=== PATIENT | female | born 1975 | race Caucasian/White ===

== ENCOUNTER 2018-09-29 16:32 | Emergency (ER) | payer OTHER ==
[~2018-09-29] VITALS: Ht 162.6 cm; Wt 81.6 kg
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
[2018-09-29] MEDS ORDERED: NAPROXEN 500 MG TABLET PO ONE (17:40)
[2018-09-29 17:45] VITALS: BP 159/101
== END 2018-09-29 17:47 | disposition home or self-care (01) ==
LOC: ER 16:32
DX: T74.11XA Adult physical abuse, confirmed, initial encounter (principal); G44.319 Acute post-traumatic headache, not intractable; F41.9 Anxiety disorder, unspecified; I10 Essential (primary) hypertension; Y08.89XA Assault by other specified means, initial encounter; Y93.89 Activity, other specified; Y92.89 Other specified places as the place of occurrence of the external cause; Y99.8 Other external cause status
CPT/HCPCS: 70450; 99284-25